=== PATIENT | female | born 1960 | race Caucasian/White ===

== ENCOUNTER → 2023-03-28 12:28 | Outpatient (CLI) | payer BC, SELFPAY ==
--- NOTE | ~2023-03-28 | MM_ITS ---
EXAMINATION: MM screening collin BI w anahy HISTORY: Screening mammogram TECHNIQUE: Craniocaudal and mediolateral oblique 3-D tomosynthesis images were obtained and synthetic 2-D images were generated. CAD analysis was submitted and interpreted. COMPARISON: 11/02/2016 diagnostic bilateral mammogram 09/08/2015, 06/25/2014 screening mammogram examinations BREAST PARENCHYMAL COMPOSITION: There are scattered areas of fibroglandular density. FINDINGS: Postsurgical changes are noted in the posterior upper outer left breast; history of prior p artial mastectomy, chemotherapy and radiotherapy for left breast cancer. There is a new irregular approximately 5.5 x 7 mm mass in the outer mid to lower right breast. No other suspicious mass or new architectural distortion or any malignant calcification is evident. C hronic retraction on the left stable since 11/02/2016. IMPRESSION: 1. New irregular approximately 7 mm mass in outer mid to lower right breast 2. Diagnostic right mammogram and right breast ultrasound examination are recommended BI-RADS Category 0: Incomplete: Needs additional imaging evaluation. Reviewed, dictated and finalized at location A. IMPRESSION: 1. New irregular approximately 7 mm mass in outer mid to lower right breast 2. Diagnostic right mammogram and right breast ultrasound examination are recom mended BI-RADS Category 0: Incomplete: Needs additional imaging evaluation.
== END ==
PROVIDERS: PCP Internal Medicine; Visit Provider Internal Medicine
DX: Z12.31 Encounter for screening mammogram for malignant neoplasm of breast (principal); R92.8 Other abnormal and inconclusive findings on diagnostic imaging of breast
CPT/HCPCS: 77063; 77067

== ENCOUNTER → 2023-04-08 08:25 | Outpatient (CLI) | payer BC, SELFPAY ==
--- NOTE | ~2023-04-08 | MMUS_ITS ---
EXAMINATION: MM diagnostic collin RT w anahy, US breast RT limited HISTORY: Right breast mass TECHNIQUE: Additional 3-D tomosynthesis images of the right breast were performed and synthetic 2-D i mages were generated. CAD analysis was submitted and interpreted. High resolution limited right breas t ultrasound was performed. COMPARISON: 03/28/2023, 11/02/2016, 09/08/2015 FINDINGS: MAMMOGRAPHIC FINDINGS: There is a 7 mm spiculated, irregular, high density mass in the middle third of the outer breast at t he 9:00 location 6 cm from the nipple. There is mild surrounding architectural distortion. No suspici ous calcification is identified. ULTRASOUND: There is a 6 mm irregular, hypoechoic mass with spiculated margins at the 8:00 location 5 cm from the nipple with no posterior features or internal vascularity. IMPRESSION: 1. Suspicious right breast mass. 2. Ultrasound-guided biopsy is recommended. BI-RADS category 5, highly suggestive of malignancy. Reviewed, dictated and finalized at location A. IMPRESSION: 1. Suspicious right breast mass. 2. Ultrasound-guided biopsy is recommended. BI-RADS category 5, highly suggestive of malignancy.
== END ==
PROVIDERS: PCP Internal Medicine; Visit Provider Internal Medicine
DX: R92.8 Other abnormal and inconclusive findings on diagnostic imaging of breast (principal)
CPT/HCPCS: 76642; 77061; 77065; G0279

== ENCOUNTER 2023-05-16 10:06 | Outpatient (CLI) | payer BC, SELFPAY ==
--- NOTE | ~2023-05-16 | MMUS_ITS ---
US breast biopsy RT w image, MM post biopsy invasive RT EXAMINATION: US GUIDED NEEDLE BIOPSY WITH VACUUM ASSISTANCE DATE: 05/16/2023 11:47 CDT INDICATION: Right breast mass seen on prior examination. Ultrasound-guided core biopsy is requested to evaluate for malignancy. TECHNIQUE AND FINDINGS: The risks and potential benefits of the procedure were discussed with the patient, and written inform ed consent was obtained. After sterile preparation of the right breast, 1% lidocaine was utilized fo r local anesthesia. 1% lidocaine with epinephrine was used for deep anesthesia. A 10G vacuum-assisted biopsy gun needle was advanced through to the outer edge of the region of inter est from a lateral approach utilizing sonographic guidance. A total of 6 tissue core samples were ob tained through the lesion. An Inrad tissue marker clip was then placed at the biopsy site. Hemostasi s was achieved. The patient tolerated procedure well and there was no evidence of immediate complication. The patien t was given verbal instructions partly is from the department. Right breast mammograms to document t issue marker clip placement. The tissue samples were submitted to surgical pathology for histologic a nalysis. IMPRESSION: 1. Successful ultrasound-guided vacuum-assisted biopsy of right spine are breast mass with tissue ma rker placement. Please refer to pathology report for histologic analysis. Reviewed, dictated and finalized at location A. IMPRESSION: 1. Successful ultrasound-guided vacuum-assisted biopsy of right spine are desiree st mass with tissue marker placement. Please refer to pathology report for hist ologic analysis.
== END 2023-05-16 10:07 | disposition home or self-care (01) ==
PROVIDERS: PCP Internal Medicine; Visit Provider Surgery
DX: N63.10 Unspecified lump in the right breast, unspecified quadrant (principal); R92.8 Other abnormal and inconclusive findings on diagnostic imaging of breast
CPT/HCPCS: 19083; 88305; 88342; 88360; A4648

== ENCOUNTER 2023-06-27 07:54 | Outpatient (CLI) | payer BC, SELFPAY ==
--- NOTE | 2023-06-27 07:57 | ECG_ITS ---
Measurements Intervals [place] Rate: 86 P: 59 NC: 160 QRS: 19 QRSD: 81 T: 52 QT: 374 QTc: 448 Interpretive Statements SINUS RHYTHM POSSIBLE LEFT ATRIAL ENLARGEMENT RSR' IN V1 OR V2, PROBABLY NORMAL VARIANT BASELINE ARTIFACT- I, III, AVR, AVL, AVF, V1 BORDERLINE ECG NO PREVIOUS ECG AVAILABLE FOR COMPARISON Electronically Signed On 06-27-2023 8:31:36 CDT by Damion Cresop D.O.
== END 2023-06-27 07:55 | disposition home or self-care (01) ==
LOC: ANHSURGERY 07:57
PROVIDERS: PCP Internal Medicine; Visit Provider Surgery
DX: I10 Essential (primary) hypertension (principal); Z01.818 Encounter for other preprocedural examination
CPT/HCPCS: 93005

== ENCOUNTER 2023-06-27 09:11 | Outpatient (CLI) | payer BC, SELFPAY ==
--- NOTE | ~2023-06-27 | MMUS_ITS ---
US_MAGSEEDRT_US, MM post biopsy invasive RT DATE: 06/27/2023 09:57 (accession [id number]), 06/27/2023 10:11 (accession [id number]) INDICATION: Preoperative ultrasound-guided biopsy Magseed placement TECHNIQUE: The purpose of the procedure, technique and potential competitions were discussed with the patient. The patient indicated understanding and gave consent. The skin was Sterile solution. Sterile drapes were applied. Local anesthetic was administered. Using ultrasound gu idance, a Magseed needle was introduced into the area of the mass at 8:00 5 cm from nipple and the Ma gseed was successfully deployed. The patient tolerated the procedure well, without complaint or apparent complication. Subsequent mediolateral and craniocaudal mammographic images reveal the Magseed at the irregular soft tissue mass in the outer mid right breast. IMPRESSION: Preoperative ultrasound-guided Magseed placement Reviewed, dictated and finalized at Location A. Reviewed, dictated and finalized at location A. IMPRESSION: Preoperative ultrasound-guided Magseed placement
== END 2023-06-27 09:12 | disposition home or self-care (01) ==
PROVIDERS: PCP Internal Medicine; Visit Provider Physician Assistant Surgical
DX: C50.911 Malignant neoplasm of unspecified site of right female breast (principal); R92.8 Other abnormal and inconclusive findings on diagnostic imaging of breast
CPT/HCPCS: 19285; A4648

== ENCOUNTER 2023-06-28 01:56 | Day surgery (SDC) | payer BC, SELFPAY ==
[2023-06-21 14:27] VITALS: BMI 27.4
--- NOTE | 2023-06-21 14:33 | PC.NURSE ---
Report to the Outpatient Waiting Room, entrance under the green pavilion located off [facility], at time 6:00 on date 06/28/23. Planned Procedure Time: 8:00. Time changes happen often and if your time is changed the preop area will call you the afternoon before. - You and your visitor will be asked to self-screen and do not enter if you have any COVID symptoms. - A mask is optional within the hospital at this time. Patients may have clear liquids (water, carbonated beverages, clear teas, apple juice) until 3 hours prior to surgery (5:00) with a maximum of 20 ounces. - No food from midnight until time of surgery Take the following medications with a SIP of water the morning of surgery: NONE DO NOT STOP ANY OF YOUR OTHER PRESCRIPTION MEDICATIONS PRIOR TO SURGERY ?EXCEPT THE FOLLOWING Medications to discontinue per physician: VITAMINS/SUPPLEMENTS Date to take last dose: 06/24/23 Please no make-up, nail kyrgyz, hairspray, perfume, deodorant, or body powder the day of surgery. No jewelry (including any body piercings) or valuables the day of surgery, leave them at home. Please take a shower or bath the night before, or the morning of, surgery with an antibacterial soap. Wear comfortable, loose fitting clothing. - Jewelry must be removed prior to entering the operating room. Rings and piercings that are not removed may be cut off. - The hospital will not accept responsibility for valuables. - Please leave all valuables, including medications, at home the day of surgery. If you are going home after surgery, a licensed coach tour driver must drive you home. - NO public transportation without another adult if you receive anesthesia. - We recommend that an adult stay with you for 24 hours following discharge. - We also recommend that you do not drive, make important decision, drink alcoholic beverages, or take any drugs that were not prescribed by your health care provider for at least 24 hours after your discharge time. Follow any additional instructions given to you from your surgeon. If you or anyone in your household have experienced Covid symptoms in the past week, please notify your surgeon or the nurse liaison at the phone number below for possible testing. Telephone instructions given to PT - KEATON BELL and asked if any additional questions and then verbalized understanding. Patient advised to call surgeon office or pre surgery nurse liaison [phone] if any additional questions.
[2023-06-28] VITALS (7 sets, daily range): BP systolic 116–135; BP diastolic 73–94; PULSE 76–95; RESP 10–18; TEMP 36.1–36.3; O2SAT 96–100
--- NOTE | ~2023-06-28 | MM_ITS ---
MM_FAXITRON_MG DATE: 06/28/2023 09:39 INDICATION: Right breast lumpectomy TECHNIQUE: Single digital mammographic exposure of surgical soft tissue specimen COMPARISON: None FINDINGS: Mag seed, radiopaque biopsy marker and soft tissue mass is situated centrally in the surgic al soft tissue specimen. IMPRESSION: Successful surgical excision Reviewed, dictated and finalized at Location A. Reviewed, dictated and finalized at location A.
[2023-06-28] MEDS: LIDOCAINE/PRILOCAINE CREAM 2.5-2.5% TUBE 1 EACH TOPICAL (06:30)
[2023-06-28] MEDS: ACETAMINOPHEN 500 MG TABLET 1000 MG PO (07:00)
[2023-06-28] MEDS: LACTATED RINGERS 1,000 ML 30 ML IV CONT ×2 (07:00→10:09)
--- NOTE | 2023-06-28 07:10 | WPDHPUPDATE1 ---
History and Physical Update Update Date/Time: 06/28/23 07:10 History and Physical has been reviewed, including an updated exam of the patient. There are NO changes in the patient's condition. Risks, benefits, and alternatives have been discussed and questions answered. Patient agrees to proceed with procedure.
--- NOTE | 2023-06-28 07:48 | WPDANESEPPF ---
Anes - Initial Pre Proc Eval Procedure: Operation Date: 06/28/23 08:00 Proposed Procedures p Right Breast Lumpectomy, Right Axillary [facility] Lymph Node Biopsy - Nika Tafoya MD Date/Time: 06/28/23 07:48 Surgeon: Nika Tafoya MD Pre Op Diagnosis: malig neoplasm unspec site right breast Patient Data Age: 62 Gender: F Height: 1.68 m Weight: 76.8 kg Last Vital Signs Temp 97.3 F L 06/28/23 07:07 Pulse 95 06/28/23 07:07 Resp 14 06/28/23 07:07 BP 116/82 06/28/23 07:07 Pulse Ox 100 06/28/23 07:07 O2 Del Method Room Air 06/28/23 07:07 Allergies Allergy/AdvReac Type Severity Reaction Status Date / Time cefuroxime [From Ceftin] Allergy Rash Verified 06/28/23 07:16 Home Medications Medication Instructions Recorded Confirmed Type fexofenadine 180 mg tablet 180 mg PO DAILY 09/04/19 06/21/23 History (Mi Allergy) valacyclovir 1 gram tablet 2,000 mg PO Q12H PRN cold sores #4 12/21/22 06/21/23 Rx (Valtrex) tabs ramipril 10 mg capsule (Altace) 10 mg PO DAILY #90 caps 04/08/23 06/21/23 Rx diltiazem HCl 240 mg 240 mg PO DAILY #90 caps 05/18/23 06/21/23 Rx capsule,extended release 24 hr cholecalciferol (vitamin D3) 25 25 mcg PO DAILY 05/31/23 06/21/23 History mcg (1,000 unit) capsule vitamin E 400 unit tablet 45 mg PO DAILY 05/31/23 06/21/23 History fluticasone propionate 50 2 spray intranasal DAILY PRN nasal 06/21/23 Rx mcg/actuation nasal congestion #15.8 mL spray,suspension valacyclovir 500 mg tablet 500 mg PO DAILY #90 tabs 06/21/23 Rx tramadol 50 mg tablet 50 mg PO Q6H PRN pain #12 tabs 06/28/23 Rx Patient hx anesthesia problems: none Family hx anesthesia problems: none Results Review: All pre-operative results and documents have been reviewed as part of the pre-operative evaluation. [facility] Past Medical History Medical History Invasive ductal carcinoma of right breast in female Family History Family History Mother Hypertension Family history of diabetes mellitus in first degree relative Patient's mother is Sibling Malignant neoplasm of prostate Father Patient's father is Social History Social History Smoking packs per day: 1 Smoking cigarettes per day: 20.0 Years smoked: 40 Smoking pack-years: 40.00 Smoking status: Current every day smoker Tobacco type: cigarettes Second hand tobacco smoke exposure: No Alcohol intake: current Drinks per week: 3 Substance use: never Substance use type: does not use Lack of Transportation: No Lack of Food: Never True Current Housing: I Have Housing Concerned About Future Housing: No Difficulty Paying Gas/Electric Bills: No Difficulty Paying for Meds: No Currently Unemployed: No Education: High School Diploma/GED Difficulty w/ Childcare or Family Care: No Living arrangements: with family Spiritual care concerns: No Anes - Eval Final PreProcedure Day of Procedure 06/28/23 07:48 Patient weight: normal Heart: regular rate and rhythm Lungs: clear to auscultation Airway: Mallampati scale class II Neurological: alert and oriented Last oral intake: >/= 8 hours ASA classification: III Emergent: no Anesthetic plan: proceed Anesthesia type and monitoring: general LMA and standard monitoring Results Review: All pre-operative results and documents have been reviewed as part of the pre-operative evaluation. Informed Consent: The patient's anesthetic plan and its attendant risks and benefits were discussed with the patient/family/POA. Questions were solicited and answers provided to the satisfaction of the patient/family/POA.
[2023-06-28] MEDS: CLINDAMYCIN 900 MG/D5W 50 ML 900 MG/50 ML PIGGYBACK 50 MG IVPB (08:00)
[2023-06-28] MEDS: BUPIVACAINE/EPINEPHRINE 0.5% 50 ML VIAL 30 ML INFILTRATE (08:35)
--- NOTE | 2023-06-28 09:02 | SUR.OPER ---
right SLN 1 specimen to pathology per Yolie PCT received per Elaine 09:01 sent fresh no frozen section as per surgeon and Elaine aware.
--- NOTE | 2023-06-28 09:54 | SUR.OPER ---
mammography 0945 xray images good and Dr. Tafoya aware. Pathology Elaine aware Lumpectomy and specimen Right Breast Anterior Margin on 1 grid. Breast margin marker sent.
--- NOTE | 2023-06-28 09:58 | W.PM.PROC2 ---
Procedure Note - Detailed Date of Procedure 06/28/23 Pre-op Diagnosis Right breast invasive ductal carcinoma Post-op Diagnosis Same Procedure Performed 1. Right breast lumpectomy with magseed localization 2. [place] lymph node injection with methylene blue dye 2. Right axillary sentinel lymph node biopsy using lymphoseek radiotracer and methylene blue. Surgeon Nika Tafoya MD [employer] Lupis Gomez PA-C Anesthesia General Indications 62-year-old female with a previous history of left breast infiltrating ductal carcinoma in 2001 now presenting with a newly diagnosed right breast invasive? ductal carcinoma.? I reviewed options with patient as far as surgical management for early breast cancer? including breast conservation with lumpectomy, sentinel lymph node biopsy and adjuvant radiation versus mastectomy with sentinel lymph node biopsy.? Patient's genetic test returned negative. She was evaluated by both Oncology and Radiation and has elected to proceed with right breast lumpectomy with sentinel lymph node biopsy this time. Risks of procedure were discussed with the patient which included but not limited to risk of bleeding, infection, positive margins, possible need for additional procedures future, recurrence, asymmetry, wound healing problems, scar pain, as well as the risk of anesthesia. All questions were answered patient agreed to proceed. Description of Procedure Patient was identified in the pre-operative area and brought to the OR suite. She underwent tumor localization previously by IR with magseed placement as well as injection of lymphoseek radiotracer by nuclear med. She was laid supine in the operating table and sequential compression devices were applied. General anesthesia was induced without difficulties. The right chest and axillary regions were prepped and draped in a sterile fashion. Dilated methylene blue (10%) was injected into the perioareolar subdermal region as a second tracer. The gamma probe was used to identify the area with highest radioactivity in the axilla, and a small incision was made overlying this area. Dissection was carried down through the subcutaneous tissue into the clavipectoral fascia, which was incised. The probe was again used to scan this area, and a hot and blue node was identified. This was carefully grasped and excised using the Ligasure device. The gamma probe was used to obtain the sentinel lymph node #1 count which was 1858. The gamma probe was again used to identify any additional radioactive lymph nodes that 10% or greater count compared to the sentinel node, and no additional nodes were identified. The wound was irrigated with saline and hemostasis was assured. The deep dermal layer was closed with 3-0 vicryl followed by 4-0 monocryl for the skin. Dermabond was applied followed by a sterile dressing. Attention was then turned to the breast. The sentimag probe was used to identify the area where the magseed was placed and an incision was made the lateral periareolar area. Dissection was carried down through the subcutaneous tissue into the breast tissue. The tumor was identified with palpation and using sentimag probe, and a rim of normal breast tissue was excised along with the tumor as our lumpectomy specimen. Once the specimen was completely excised, it was oriented using surgical pain according to manager of hospital instruction. An xray of the specimen was obtained using the faxitron and images were sent to Radiology for radiographic confirmation of Tumor, biopsy marker and magseed within the specimen. Once the radiographic confirmation was received, the wound was irrigated with saline and hemostasis was assured. The deep dermal layer was approximated using interrupected 3-0 vicryl followed by 4-0 monocryl for the skin. Dermabond was applied followed by a surgical bra. Patient was awoken from anesthesia and taken to the recovery area in stable condition. All needles, instruments and sponge counts were correct a
[2023-06-28] MEDS: oxyCODONE HCL (*CRX) 5 MG TAB IR PO (11:06)
== END 2023-06-28 11:32 | disposition home or self-care (01) ==
PROVIDERS: PCP Internal Medicine; Visit Provider Surgery
PROC: (CPT 19301; principal; 2023-06-28 08:00)
DX: C50.911 Malignant neoplasm of unspecified site of right female breast (principal); Z17.0 Estrogen receptor positive status [ER+]; F17.210 Nicotine dependence, cigarettes, uncomplicated; Z79.891 Long term (current) use of opiate analgesic; Z85.3 Personal history of malignant neoplasm of breast
CPT/HCPCS: 19301; 38525; 19285; 76098; 88307; 88342; 93005; A4648; A9270; C1713; J1100; J1170; J2250; J2405; J2704; J3010; J7120; L8000; Q9968

== ENCOUNTER 2023-12-23 09:11 | Outpatient (CLI) | payer BC, SELFPAY ==
[2023-12-23 09:33] LABS: Basophils Absolute Auto 0.1 K/mm3 (0.0-0.1); Basophils Percent Auto 0.8 % (0.2-1.2); Eosinophils Absolute Auto 0.3 K/mm3 (0-0.3); Eosinophils Percent Auto 3.1 % (0-4.4); Hematocrit 39.3 % (37.0-47.0); Hemoglobin 12.9 g/dL (12.0-15.0); Immature Granulocyte Absolute 0.03 K/mm3 (0.00-0.031); Immature Granulocyte Percent A 0.3 % (0-0.5); Lymphocytes Absolute Auto 2.31 K/mm3 (0.9-3.2); Lymphocytes Percent Auto 22.7 % (18.3-44.2); Mean Corpuscular HGB Conc 32.8 g/dl (32-36); Mean Corpuscular Hemoglobin 30.6 pg (26-34); Mean Corpuscular Volume 93.3 fl (80-100); Mean Platelet Volume 8.4 fl (7.4-10.4); Monocytes Absolute Auto 0.6 K/mm3 (0.1-0.6); Monocytes Percent Auto 6.3 % (2.6-8.5); Neutrophils Absolute Auto 6.8 K/mm3 (1.3-6.7); Neutrophils Percent Auto 66.8 % (45.5-73.1); Platelet Count Result 372 k/mm3 (150-375); Red Blood Count 4.21 M/mm3 (4.2-5.4); Red Cell Distribution Width 12.7 % (11.5-14.5); White Blood Count 10.2 K/mm3 (4.5-10.0)
[2023-12-23 10:37] LABS: Alanine Aminotransferase 20 U/L (6-35); Albumin Level 4.3 g/dL (3.5-5.1); Alkaline Phosphatase 59 U/L (38-126); Anion Gap 2 mmol/L (8-16); Aspartate Amino Transferase 27 U/L (14-36); Bilirubin,Total 0.5 mg/dL (0.2-1.3); Blood Urea Nitrogen 14 mg/dL (7-17); Calcium 9.4 mg/dL (8.4-10.2); Carbon Dioxide 29 mmol/L (22-30); Chloride 100 mmol/L (98-107); Estimated Glomerular Filt Rate > 60; Glucose 97 mg/dL (65-110); Potassium 4.3 mmol/L (3.4-5.0); Sodium 131 mmol/L (137-145)
[2023-12-26 13:47] LABS: CA 15-3 8 U/mL (<32)
== END 2023-12-23 09:12 | disposition home or self-care (01) ==
LOC: ANHLAB 09:13
PROVIDERS: PCP Internal Medicine; Visit Provider Internal Medicine Hematology & Oncology
DX: C50.411 Malignant neoplasm of upper-outer quadrant of right female breast (principal); Z17.0 Estrogen receptor positive status [ER+]
CPT/HCPCS: 36415; 80053; 85025; 86300

== ENCOUNTER 2024-02-10 07:41 | Outpatient (CLI) | payer BC, SELFPAY ==
--- NOTE | ~2024-02-10 | MM_ITS ---
EXAMINATION: MM diagnostic collin BI w anahy HISTORY: Status post right partial mastectomy in May 2023 for breast cancer. History of left parti al mastectomy for breast cancer in 2001. TECHNIQUE: ML, MLO and CC 3-D tomosynthesis images of both breasts were performed and synthetic 2-D i mages were generated. CAD analysis was submitted and interpreted. COMPARISON: 05/16/2023) ultrasound breast biopsy 04/08/2023 diagnostic right mammogram and Limited right breast ultrasound 03/08/2023 bilateral screening mammogram BREAST PARENCHYMAL COMPOSITION: There are scattered areas of fibroglandular density. FINDINGS: Status post bilateral partial mastectomy, more recently in the outer mid right breast. No s uspicious mass, new architectural distortion, malignant calcification, skin thickening or new retract ion is noted. IMPRESSION: 1. Postoperative changes in both breasts, more recent on the right, from bilateral partial mastectomy for breast cancer 2. Six-month diagnostic right mammogram follow-up is recommended to show expected improvement of rece nt postoperative changes. BI-RADS category 3, probably benign findings. Reviewed, dictated and finalized at location B. IMPRESSION: 1. Postoperative changes in both breasts, more recent on the right, from bilate ral partial mastectomy for breast cancer 2. Six-month diagnostic right mammogram follow-up is recommended to show expect ed improvement of recent postoperative changes. BI-RADS category 3, probably benign findings.
== END 2024-02-10 07:42 ==
LOC: MICIMG 07:42
PROVIDERS: PCP Internal Medicine; Visit Provider Internal Medicine Hematology & Oncology
DX: R92.8 Other abnormal and inconclusive findings on diagnostic imaging of breast (principal); C50.411 Malignant neoplasm of upper-outer quadrant of right female breast; Z17.0 Estrogen receptor positive status [ER+]
CPT/HCPCS: 77062; 77066; G0279

== ENCOUNTER 2024-04-12 10:32 | Outpatient (CLI) | payer BC, SELFPAY ==
[2024-04-12 10:46] LABS: Basophils Absolute Auto 0.1 K/mm3 (0.0-0.1); Basophils Percent Auto 0.7 % (0.2-1.2); Eosinophils Absolute Auto 0.2 K/mm3 (0-0.3); Eosinophils Percent Auto 2.1 % (0-4.4); Hematocrit 41.5 % (37.0-47.0); Hemoglobin 13.4 g/dL (12.0-15.0); Immature Granulocyte Absolute 0.05 K/mm3 (0.00-0.031); Immature Granulocyte Percent A 0.5 % (0-0.5); Lymphocytes Absolute Auto 2.64 K/mm3 (0.9-3.2); Lymphocytes Percent Auto 24.3 % (18.3-44.2); Mean Corpuscular HGB Conc 32.3 g/dl (32-36); Mean Corpuscular Hemoglobin 30.8 pg (26-34); Mean Corpuscular Volume 95.4 fl (80-100); Mean Platelet Volume 8.8 fl (7.4-10.4); Monocytes Absolute Auto 0.6 K/mm3 (0.1-0.6); Monocytes Percent Auto 5.9 % (2.6-8.5); Neutrophils Absolute Auto 7.2 K/mm3 (1.3-6.7); Neutrophils Percent Auto 66.5 % (45.5-73.1); Platelet Count Result 398 k/mm3 (150-375); Red Blood Count 4.35 M/mm3 (4.2-5.4); White Blood Count 10.9 K/mm3 (4.5-10.0)
[2024-04-12 13:57] LABS: Alanine Aminotransferase 19 U/L (6-35); Albumin Level 4.5 g/dL (3.5-5.1); Alkaline Phosphatase 57 U/L (38-126); Anion Gap 7 mmol/L (4-12); Aspartate Amino Transferase 26 U/L (14-36); Bilirubin,Total 0.4 mg/dL (0.2-1.3); Blood Urea Nitrogen 19 mg/dL (7-17); Calcium 9.3 mg/dL (8.4-10.2); Carbon Dioxide 26 mmol/L (22-30); Chloride 104 mmol/L (98-107); Estimated Glomerular Filt Rate > 60; Glucose 92 mg/dL (65-110); Potassium 3.8 mmol/L (3.4-5.0); Sodium 137 mmol/L (137-145)
[2024-04-13 14:13] LABS: CA 15-3 6 U/mL (<32)
== END 2024-04-12 10:33 | disposition home or self-care (01) ==
LOC: ANHLAB 10:34
PROVIDERS: PCP Internal Medicine; Visit Provider Internal Medicine Hematology & Oncology
DX: C50.411 Malignant neoplasm of upper-outer quadrant of right female breast (principal); Z17.0 Estrogen receptor positive status [ER+]
CPT/HCPCS: 36415; 80053; 85025; 86300

== ENCOUNTER 2024-07-16 08:00 | Outpatient (CLI) | payer BC, SELFPAY ==
--- NOTE | ~2024-07-16 | MM_ITS ---
EXAMINATION: MM diagnostic collin RT w anahy HISTORY: History of breast cancer. Follow-up post lumpectomy. TECHNIQUE: Additional 3-D tomosynthesis images of the right breast were performed and synthetic 2-D i mages were generated. CAD analysis was submitted and interpreted. COMPARISON: Comparison to multiple prior studies sequentially, with oldest reviewed study dated 03/28. BREAST PARENCHYMAL COMPOSITION: Not dense: There are scattered areas of fibroglandular density. FINDINGS: The right breast is stable. There are distortion changes in the right breast consistent wit h prior lumpectomy. No new masses, calcifications or areas of architectural distortion. IMPRESSION: 1. Stable right mammogram. No evidence for malignancy. 2. Routine yearly screening mammogram and regular clinical breast examination are recommended. BI-RADS Category 2: Benign finding(s). Reviewed, dictated and finalized at location B. IMPRESSION: 1. Stable right mammogram. No evidence for malignancy. 2. Routine yearly screening mammogram and regular clinical breast examination a re recommended. BI-RADS Category 2: Benign finding(s).
== END 2024-07-16 08:01 | disposition home or self-care (01) ==
LOC: MICIMG 08:00
PROVIDERS: PCP Internal Medicine; Visit Provider Internal Medicine Hematology & Oncology
DX: C50.411 Malignant neoplasm of upper-outer quadrant of right female breast (principal); Z17.0 Estrogen receptor positive status [ER+]
CPT/HCPCS: 77061; 77065; G0279

== ENCOUNTER 2025-02-26 14:32 | Outpatient (CLI) | payer OTHER, SELFPAY ==
--- NOTE | ~2025-02-26 | MM_ITS ---
EXAMINATION: MM screening collin BI w anahy HISTORY: Screening TECHNIQUE: Craniocaudal and mediolateral oblique 3-D tomosynthesis images were obtained and synthetic 2-D images were generated. CAD analysis was submitted and interpreted. COMPARISON: Comparison to multiple prior studies sequentially, with oldest reviewed study dated 04/2020. BREAST PARENCHYMAL COMPOSITION: Not dense: There are scattered areas of fibroglandular density. FINDINGS: The stable lumpectomy changes in the upper outer quadrant of both breasts. There is no evid ence of suspicious mass, calcification, or architectural distortion to suggest malignancy in either b reast. There has been no suspicious interval change. IMPRESSION: 1. No mammographic evidence of malignancy. 2. Recommend routine screening mammography in one year. BI-RADS Category 1: Negative Reviewed, dictated and finalized at location A.
== END 2025-02-26 14:33 | disposition home or self-care (01) ==
LOC: MICIMG 14:33
PROVIDERS: PCP Surgery; Visit Provider Internal Medicine Hematology & Oncology
DX: Z12.31 Encounter for screening mammogram for malignant neoplasm of breast (principal)
CPT/HCPCS: 77063; 77067